=== PATIENT | female | born 1985 ===

== ENCOUNTER 2017-04-12 08:40 | Day surgery (SDC) | payer OTHER ==
[2017-04-12] MEDS ORDERED: Propofol 10 mg/ml Inj (20 ML) ONE (12:31)
[2017-04-12] MEDS ORDERED: Lactated Ringer's 1,000 ML IV ONE (12:40)
[2017-04-12] MEDS ORDERED: Midazolam 2 MG/2 ML VIAL ONE (12:40)
[2017-04-12 14:05] VITALS: TEMP 97.3; O2SAT 98
[2017-04-12 14:57] VITALS: BP 100/67; PULSE 66; RESP 18
== END 2017-04-12 14:45 | disposition home or self-care (01) ==
LOC: C.ENDO 08:40
PROVIDERS: ATTEND Internal Medicine
DX: C21.8 Malignant neoplasm of overlapping sites of rectum, anus and anal canal (principal)
CPT/HCPCS: 45392; 84703; 88305; J2250; J2704; J3010; J7120

== ENCOUNTER 2017-05-10 07:15 | Day surgery (SDC) | payer OTHER ==
[2017-05-10] MEDS ORDERED: ceFAZolin IV 1 gm in Dextrose 0 GM/0 ML BAG IVPB ONE (09:34)
[2017-05-10] MEDS ORDERED: Sodium Chloride 0.9% 20 ML IV ONE (09:43)
[2017-05-10] MEDS: Bupivacaine 0.25% Inj(30mL) ONE ×2 (09:47→10:47)
[2017-05-10] MEDS: Lidocaine/Epinephrine 1% 1:100000 10 ML IJ ONE ×2 (09:48→10:47)
[2017-05-10] MEDS: HEPARIN-NS 5,000 UNITS/500 ML 5,000 UNIT/500 ML BAG IV ONE ×2 (09:48→10:47)
[2017-05-10] MEDS ORDERED: Propofol 10 mg/ml Inj (20 ML) ONE ×3 (10:06→10:59)
[2017-05-10] MEDS ORDERED: Midazolam 2 MG/2 ML VIAL ONE ×2 (10:07→10:10)
[2017-05-10] MEDS ORDERED: ceFAZolin IV 1 gm in Dextrose 2 GM/100 ML BAG IVPB ONE (10:40)
--- NOTE | 2017-05-10 11:45 | PCM.SURG1 ---
Surgeon's Initial Post Op Note - Surgeon's Notes Surgeon: Dr. Benson Overlay Operator: Juan PGY1 Type of Anesthesia: General LMA, Local Pre-Operative Diagnosis: Rectal Cancer Operative Findings: see operative report Post-Operative Diagnosis: same Operation Performed: Portacath placement Specimen/Specimens Removed: none Estimated Blood Loss: EBL {In ML}: 10 Blood Products Given: N/A Drains Used: No Drains Post-Op Condition: Good Date of Surgery/Procedure: 05/10/17 Time of Surgery/Procedure: 11:45
[2017-05-10] MEDS ORDERED: HYDROmorphone 0.5 mg/0.5 ml ISec IVP PRN (11:46)
[2017-05-10] MEDS ORDERED: Oxycodone/Acetaminophen 5/325 mg Tab PO PRN (11:46)
[2017-05-10 12:12] VITALS: O2SAT 100
--- NOTE | 2017-05-10 12:41 | RAD ---
HISTORY: S/p portacath placement COMPARISON: No prior. FINDINGS: The right-sided MediPort terminates at the cavoatrial junction LUNGS: The lungs are clear. PLEURA: No significant pleural effusion identified, no pneumothorax apparent. CARDIOVASCULAR: Normal. OSSEOUS STRUCTURES: No significant abnormalities. VISUALIZED UPPER ABDOMEN: Normal. OTHER FINDINGS: None. IMPRESSION: Right-sided MediPort terminates at the cavoatrial junction. No acute findings.
[2017-05-10] MEDS ORDERED: Lactated Ringer's 500 ML IV ONE (13:00)
[2017-05-10 13:33] VITALS: RESP 16
[2017-05-10 14:06] VITALS: BP 97/56; PULSE 97; TEMP 97.8
--- NOTE | 2017-05-12 22:06 | OP ---
PROCEDURE DATE: 05/10/2017 PREOPERATIVE DIAGNOSES: 1. Colorectal cancer. 2. The patient has neoadjuvant chemotherapy. POSTOPERATIVE DIAGNOSES: 1. Colorectal cancer. 2. The patient has neoadjuvant chemotherapy. PROCEDURE DONE: 1. Right IJ Port-A-Cath insertion. 2. Ultrasound guided venous access. 3. Intraoperative fluoroscopy. SURGEON: Nathaniel Benson MD ASSOCIATE PROFESSOR OF BIOLOGY: Paddy Martinez, PGY-1 resident. TYPE OF ANESTHESIA: General endotracheal anesthesia. ESTIMATED BLOOD LOSS: Around 10 mL. DRAINS: None. PATHOLOGY: None. COMPLICATIONS: None. INTRAOPERATIVE FINDINGS: The patient had a patent right IJ. DESCRIPTION OF PROCEDURE: On intraoperative steps, this is a 31-year-old female who was diagnosed with advanced stage colorectal cancer and patient needed neoadjuvant chemotherapy and patient was consented for Port-A-Cath insertion, brought to the OR, placed supine on the operating table. After induction of the anesthesia, the neck and upper chest was prepped and draped in usual sterile fashion. Under ultrasound guidance, right IJ venous access was done, guidewire was placed. Fluoroscopic confirmation was done. Right infraclavicular pouch was created. The catheter was tunneled from the pouch up to the right IJ insertion site, and the catheter was introduced into the dilator sheath. Another fluoroscopic confirmation was done. Port was connected to the catheter. Port was secured to the floor of the pouch and pouch was closed in two layers, subcu with a 2-0 Vicryl, skin with a 4-0 Monocryl. The port was aspirated and it was functioning without any blockage, and the port was flushed with heparin saline and straight heparin. Right IJ insertion site was also closed with 4-0 Monocryl. Dry sterile dressing was applied. The patient tolerated the procedure well. Count of the instrument and gauze was correct. There was no apparent complication. The patient was reversed from anesthesia in the OR and sent to the Postanesthesia Care Unit in stable condition. The postoperative chest x-ray was ordered. Nathaniel Benson MD
--- NOTE | 2017-05-13 10:25 | RAD ---
PROCEDURE: Intraoperative Fluoroscopy. HISTORY: RECTAL CA. FINDINGS: Fluoroscopic assistance was provided. 13.4 seconds fluoroscopy time utilized during this procedure. Radiation dose = 0.98 mGy The the Please refer to the operative report from [facility].
== END 2017-05-10 14:03 | disposition home or self-care (01) ==
LOC: C.SDS 07:15
PROVIDERS: ATTEND Surgery Surgical Critical Care
DX: C19 Malignant neoplasm of rectosigmoid junction (principal)
CPT/HCPCS: 36561; 71045; C1788; J1170; J1644; J2250; J2704; J2765; J3010; J7040; J7120